=== PATIENT | male | born 1985 | race Caucasian/White ===

== ENCOUNTER 2016-12-04 03:42 | Emergency (ER) | payer BC ==
[2016-12-04] MEDS ORDERED: Fentanyl 100 MCG/2 ML VIAL ONE (03:51)
[2016-12-04] MEDS ORDERED: Ketorolac Tromethamine 30 MG/ML VIAL ONE (03:51)
[2016-12-04 04:08] LABS: #Basophils 0.1 thou/uL (0.0-0.2); #Eosinphils 0.3 thou/uL (0.0-0.7); #Lymphocytes 4.2 thou/uL (1.20-3.40); #Monocytes 0.9 thou/uL (0.11-0.59); #Neutrophils 7.3 thou/uL (1.40-6.50); %Eosinophils 2.3 % (0.0-10.0); %Lymphocytes 32.6 % (21.0-51.0); %Monocytes 7.3 % (0.0-10.0); %Neutrophils 56.9 % (42.0-75.0); Blood, Urine Large (Negative); Clarity Slightly Cloudy (Clear); Glucose, Urine (Dipstick) Negative (Negative); Hemoglobin 15.9 g/dL (14.0-18.0); Leukocyte Negative (Negative); Mean Corpuscular Hemoglobin 28.9 pg (27.0-31.0); Mean Corpuscular Volume 85.1 fl (80.0-94.0); Mean Platelet Volume 7.2 fL (7.4-10.4); Nitrite Negative (Negative); Platelet Count 256 thou/uL (130-400); Protein, Urine (Dipstick) 30 mg/dL (Neg-Trace); RBC Distribution Width 12.3 % (11.5-14.5); White Blood Cell (WBC) Count 12.8 thou/uL (4.8-10.8); pH, Urine 5.5 (5.0-9.0)
[2016-12-04 04:11] LABS: Bilirubin Negative (Negative); Specific Gravity, Urine 1.031 (1.002-1.036)
[2016-12-04 04:14] LABS: Squamous Epithelial 0-3 HPF (0-3); WBC/HPF 0-3 HPF (0-3)
[2016-12-04 04:17] LABS: Anion Gap 14 mmol/L (10-20); BUN (Urea Nitrogen) 12 mg/dL (8.9-20.6); Calc. Creatinine Clearance 0 mL/min (70-130); Calcium 9.1 mg/dL (7.8-10.44); Carbon Dioxide 25 mmol/L (22-29); Chloride 106 mmol/L (98-107); Estimated GFR-MDRD Greater than 90; Glucose 171 mg/dL (70-105); Potassium 3.5 mmol/L (3.5-5.1)
[2016-12-04 04:19] LABS: Sodium 141 mmol/L (136-145)
--- NOTE | 2016-12-04 07:43 | CT ---
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 HX of kidney stones TECHNIQUE: Axial computed tomography images of the abdomen and pelvis without intravenous contrast. Coronal reformatted images were created and reviewed. COMPARISON: No relevant prior studies available. FINDINGS: Artifacts: Study limited by scatter artifact. Lower thorax: No acute findings. ABDOMEN: Liver: Unremarkable. Gallbladder and bile ducts: Unremarkable. No calcified stones. No ductal dilation. Pancreas: Unremarkable. No ductal dilation. Spleen: Unremarkable. No splenomegaly. Adrenals: Unremarkable. No mass. Kidneys and ureters: Unremarkable. No obstructing stones. No hydronephrosis. Stomach and bowel: Colonic diverticulosis. No diverticulitis. No obstruction. Appendix: Normal appendix. PELVIS: Bladder: Unremarkable. No stones. Reproductive: Unremarkable as visualized. ABDOMEN and PELVIS: Intraperitoneal space: Unremarkable. No free air. No significant fluid collection. Bones/joints: No acute fracture. No dislocation. Soft tissues: Unremarkable. Vasculature: Unremarkable. No abdominal aortic aneurysm. Lymph nodes: Unremarkable. No enlarged lymph nodes. IMPRESSION: No acute findings. Thank you for allowing us to participate in the care of your patient. Dictated and Authenticated by: Lazarus Pitt MD 12/04/2016 4:30 AM Central Time ([place] \T\ Med) FINAL REPORT CT ABDOMEN AND PELVIS WITHOUT CONTRAST: DATE: 12/04/16. FINDINGS: A noncontrast CT was done for evaluation of right flank pain. Axial slices were acquired, then alec nal reconstructions were done. There is some graininess to the images and streak artifact that slig htly degrades the study. The lung bases are clear. The liver, spleen, pancreas, adrenal glands, and abdominal aorta appear n ormal. The gallbladder is not very distended, but no gross stones were appreciated within it. No mass or hydronephrosis was seen in either kidney. There is a very tiny calcification in the mid portion of the right kidney that appears to be a tiny nonobstructing stone. I count not detect any ureteral stones or ureteral dilation. While no calcifications were seen in the urinary bladder, the re is considerable artifact here that could easily mask tiny stones. The bowel is nondistended. There is no inflammatory change around bowel. The appendix appears norm al. No free air or free fluid was seen. CT of the pelvis showed no pelvic masses or fluid collections. Sensitivity in this area is low due to artifact. IMPRESSION: 1. Tiny nonobstructing calculus in the right kidney. 2. No evidence of ureteral calculi or ureteral dilation. Extremely tiny calculi, particularly in t he urinary bladder would be missed by this study. 3. Exam otherwise unremarkable. POS: HOME
== END 2016-12-04 05:00 | disposition home or self-care (01) ==
LOC: BURERS 03:42
DX: N20.0 Calculus of kidney (principal); K57.90 Diverticulosis of intestine, part unspecified, without perforation or abscess without bleeding; F17.210 Nicotine dependence, cigarettes, uncomplicated
CPT/HCPCS: 74176; 80048; 81003; 81015; 85025; 96374; 96375; J1885; J3010